=== PATIENT | female | born 1990 | race African-American/Black ===

== ENCOUNTER 2019-03-14 07:08 | Emergency (ER) | payer OTHER ==
[~2019-03-14] VITALS: Ht 165.1 cm; Wt 81.2 kg
[~2019-03-14 07:08] MED LIST: BIRTH CONTROL PATCH; DEPO-PROVERA; FLEXERIL PO; IBUPROFEN 800800 MG PO; NORCO 5-325 TA1 EACH PO; NORFLEX100 MG PO; VENTOLIN HFA 1818 GM INH
[2019-03-14] MEDS ORDERED: B-6200 MG PO (07:24)
[2019-03-14] MEDS ORDERED: PNV 29-1 TABLE1 EACH PO (07:24)
[2019-03-14 07:34] LABS: URINE BILIRUBIN NEGATIVE (Negative); URINE BLOOD NEGATIVE (Negative); URINE CLARITY CLEAR; URINE COLOR YELLOW; URINE GLUCOSE-RANDOM NEGATIVE (Negative); URINE KETONES 1+ (Negative); URINE LEUKOCYTES-REFLEX NEGATIVE (Negative); URINE NITRITE-REFLEX NEGATIVE (Negative); URINE PROTEIN NEGATIVE (Negative); URINE UROBILINOGEN 0.2 E.U./dl (0.2-1.0)
[2019-03-14] MEDS ORDERED: GYNE-LOTRIMIN21 GM VAG (08:00)
[2019-03-14 08:06] VITALS: BP 124/68
== END 2019-03-14 08:06 | disposition home or self-care (01) ==
LOC: M.ERS 07:08
PROVIDERS: Emergency Medicine
DX: O23.593 Infection of other part of genital tract in pregnancy, third trimester (principal); Z3A.31 31 weeks gestation of pregnancy; Z91.018 Allergy to other foods

== ENCOUNTER 2019-10-08 07:12 | Emergency (ER) | payer OTHER ==
[~2019-10-08] VITALS: Ht 165.1 cm; Wt 72.1 kg
[~2019-10-08 07:12] MED LIST changes: +B-6200 MG PO; +GYNE-LOTRIMIN21 GM VAG; +PNV 29-1 TABLE1 EACH PO
[2019-10-08] MEDS ORDERED: FLEXERIL PO (08:13)
[2019-10-08] MEDS ORDERED: IBUPROFEN 800800 M1 PO ×2 (08:13→08:27)
[2019-10-08 08:35] VITALS: BP 110/63
== END 2019-10-08 08:36 | disposition home or self-care (01) ==
LOC: M.ERS 07:12
DX: F07.81 Postconcussional syndrome (principal); M54.5 Low back pain; J45.909 Unspecified asthma, uncomplicated; Z91.018 Allergy to other foods

== ENCOUNTER 2020-01-10 03:11 | Emergency (ER) | payer OTHER ==
[~2020-01-10] VITALS: Ht 165.1 cm; Wt 70.3 kg
[~2020-01-10 03:11] MED LIST changes: +IBUPROFEN 800800 M1 PO
[2020-01-10] MEDS ORDERED: COZAAR 25 MG TA25 MG PO (03:32)
[2020-01-10] MEDS ORDERED: LEXAPRO5 MG PO (03:40)
[2020-01-10 04:03] LABS: ABSOLUTE LYMPHOCYTES 1.2 thou/uL (0.8-5.3); ABSOLUTE MONOCYTES 0.5 thou/uL (0.0-1.2); ABSOLUTE NEUTROPHILS 9.8 thou/uL (1.6-8.1); BASOPHILS 0.3 %; EOSINOPHILS 0.2 %; HEMATOCRIT 37.7 % (37.0-47.0); HEMOGLOBIN 12.6 gm/dL (12.0-15.0); LYMPHOCYTES 10.5 %; MCH 23.5 pg (26.0-34.0); MCHC 33.3 g/dL (28.0-37.0); MCV 70.5 fL (80.0-100.0); MONOCYTES 4.2 %; MPV 9.3 fl. (7.2-11.1); NUCLEATED RBCS 0 /100WBC; PLATELET COUNT* 199 thou/uL (150-400); POLYS 84.8 %; RBC 5.35 mil/uL (4.20-5.00); RDW-CV 14.5 % (10.5-14.5); WBC 11.6 thou/uL (4.0-11.0)
[2020-01-10 04:09] LABS: URINE BILIRUBIN NEGATIVE (Negative); URINE BLOOD 3+ (Negative); URINE CLARITY CLEAR; URINE COLOR YELLOW; URINE GLUCOSE-RANDOM NEGATIVE (Negative); URINE LEUKOCYTES-REFLEX NEGATIVE (Negative); URINE NITRITE-REFLEX NEGATIVE (Negative); URINE PROTEIN TRACE (Negative); URINE SPECIFIC GRAVITY >= 1.030 (1.005-1.030); URINE UROBILINOGEN 0.2 E.U./dl (0.2-1.0)
[2020-01-10 04:16] LABS: URINE KETONES 3+ (Negative)
[2020-01-10 04:17] LABS: CALCIUM 9.5 mg/dL (8.5-10.1)
[2020-01-10 04:18] LABS: ACETEST (KETONE CONFIRMATORY) Large (Negative)
[2020-01-10 04:22] LABS: TOTAL BILIRUBIN 0.7 mg/dL (<0.1-1.0); TOTAL PROTEIN 7.7 g/dL (6.4-8.2)
[2020-01-10 04:42] LABS: CASTS None Seen /LPF (None Seen); MUCUS 0-3 Light strn/LPF (None Seen); SQUAMOUS >10 Many /LPF (0-3)
[2020-01-10 04:43] LABS: URINE WBC-REFLEX 6-15 Few /HPF (0-5)
[2020-01-10 04:45] LABS: BACTERIA-REFLEX 1-9 Few /HPF (None Seen); CRYSTALS None Seen /LPF (None Seen); URINE RBC 0-2 Rare /HPF (0-2)
[2020-01-10 05:16] VITALS: BP 129/86
[2020-01-10 05:40] LABS: HYPOCHROMASIA 1+; MICROCYTES 2+
[2020-01-10 05:42] LABS: PLATELET ESTIMATE ADEQUATE; POIKILOCYTOSIS Occasional
--- NOTE | 2020-01-11 14:14 | EKG ---
[place] [address] ELECTROCARDIOGRAM REPORT Name: DARRELL BOLDEN Room: [facility]#: [id number] Admission: 01/10/20 Attend Phys: Discharge: 01/10/20 Date of : 89 Date of Service: 01/10/20 0326 Report #: [id number] THIS REPORT FOR: //name// [facility] ED Test Date: 2020-01-10 Test Time: 03:26:58 Pat Name: DARRELL BOLDEN Department: Room: Gender: Wet [employer] Operator: : 1990 Requested By: Marichuy Freeman Order Number: [id number] MD: Talat More Measurements Intervals [place] Rate: 80 P: 26 [place]: 142 QRS: 54 QRSD: 86 T: 34 QT: 373 QTc: 431 Interpretive Statements Sinus rhythm Nonspecific T abnormalities, anterior leads Baseline wander in lead(s) II,aVF No previous ECG available for comparison Electronically Signed On 01-11-2020 14:14:38 CDT by Talat More [email or web address] <ELECTRONICALLY SIGNED> By: Talat More MD, [facility] 01/11/20 1414 0326 0326 Talat More MD, [facility] /EPI
== END 2020-01-10 05:17 | disposition home or self-care (01) ==
LOC: M.ERS 03:11
PROVIDERS: Personal Emergency Response Attendant
DX: R00.2 Palpitations (principal); R07.9 Chest pain, unspecified; R06.02 Shortness of breath; J45.909 Unspecified asthma, uncomplicated; Z79.899 Other long term (current) drug therapy; Z91.018 Allergy to other foods

== ENCOUNTER 2020-02-02 11:20 | Emergency (ER) | payer OTHER ==
[~2020-02-02] VITALS: Ht 165.1 cm; Wt 69.4 kg
[~2020-02-02 11:20] MED LIST changes: +COZAAR 25 MG TA25 MG PO; +LEXAPRO5 MG PO
[2020-02-02] MEDS ORDERED: SERTRALINE HCL100 MG PO (11:43)
[2020-02-02] MEDS ORDERED: MEDROLDOSEPACK PO (13:07)
[2020-02-02] MEDS ORDERED: FLEXERIL PO (13:07)
[2020-02-02] MEDS ORDERED: APAP W/CODEINE1 TA2 PO (13:07)
[2020-02-02 13:40] VITALS: BP 133/68
== END 2020-02-02 13:41 | disposition home or self-care (01) ==
LOC: M.ERS 11:20
DX: S16.1XXA Strain of muscle, fascia and tendon at neck level, initial encounter (principal); M54.6 Pain in thoracic spine; J45.909 Unspecified asthma, uncomplicated; Z88.6 Allergy status to analgesic agent; Z88.5 Allergy status to narcotic agent; Z91.018 Allergy to other foods; V89.2XXA Person injured in unspecified motor-vehicle accident, traffic, initial encounter; Y93.89 Activity, other specified; Y92.89 Other specified places as the place of occurrence of the external cause; Y99.8 Other external cause status